=== PATIENT | female | born 1980 | race Asian ===

== ENCOUNTER 2018-06-16 06:15 | Inpatient (IN) | payer BC ==
[~2018-06-16 06:15] MED LIST: Buffered Lidocaine 1% SYRIN* 1 ML/SYRINGE INTRADERM ONE; Lactated Ringers 1000 ML Bag* 1,000 ML IV SCH; Sodium Citrate/Citric Acid* 15 ML UDC PO ONE
[2018-06-16] MEDS ORDERED: Morphine PF AMP (0.5MG/ML)* 5 MG/10 ML AMP ONE (07:36)
[2018-06-16] MEDS ORDERED: Carboprost Tromethamine* 250 MCG INJ ONE (07:36)
[2018-06-16] MEDS ORDERED: ceFOXitin 2 GM IVPREMIX* 2 GM/50 ML BAG ONE (07:37)
[2018-06-16] MEDS ORDERED: DiMENhydriNATE IV* 50 MG/ML VIAL IV PUSH PRN (07:45)
[2018-06-16] MEDS ORDERED: Naloxone* 0.4 MG/ML 1 ML VIAL IV PRN ×2 (07:45→08:50)
[2018-06-16] MEDS ORDERED: fentaNYL* 50 MCG/ML 2 ML VIAL (100 MCG VIAL) IV PRN (07:45)
[2018-06-16] MEDS ORDERED: Phenylephrine IV* 40 MCG/ML 10 ML SYRINGE ONE (08:27)
[2018-06-16] MEDS ORDERED: OXYTOCIN* 10 UNITS/ML 1 ML VIAL ONE ×2 (08:29→08:37)
[2018-06-16] MEDS ORDERED: Ondansetron INJ* 2 MG/ML VIAL ONE (08:29)
[2018-06-16] MEDS ORDERED: Ondansetron INJ* 2 MG/ML VIAL IV PRN (08:50)
[2018-06-16] MEDS ORDERED: Naloxone* 2 MG in NS 0.9% 250 ML* 250 ML IV PRN (08:50)
[2018-06-16] MEDS ORDERED: oxyCODONE/Acetamin 5/325 MG* TAB PO PRN (08:50)
[2018-06-16] MEDS ORDERED: Nalbuphine* 10 MG/ML 1 ML VIAL IV PRN (08:50)
[2018-06-16] MEDS ORDERED: Witch Hazel PAD* JAR TOPICAL PRN (09:30)
[2018-06-16] MEDS ORDERED: Dibucaine 1% 28.35 GM TUBE PR PRN (09:30)
[2018-06-16] MEDS ORDERED: Glycerin ADULT SUPP PR PRN (09:30)
[2018-06-16] MEDS ORDERED: Oxytocin in LR* 20 UNITS/1,000 ML BAG IVPB SCH (10:00)
[2018-06-16] MEDS ORDERED: Lactated Ringers 1000 ML Bag* 1,000 ML IV SCH (10:00)
[2018-06-16] MEDS: Acetaminophen TAB* 325 MG PO PRN ×3 (11:53→20:10)
[2018-06-16] MEDS: Simethicone TAB* 80 MG TAB.CHEW PO SCH ×3 (12:29→21:36)
[2018-06-16] MEDS: Docusate CAP* 100 MG PO SCH ×2 (12:43→21:36)
--- NOTE | 2018-06-16 23:46 | OP ---
DATE OF OPERATION: 06/16/18 - ROOM #117 DATE OF : 80 SURGEON: Marlen Santo MD MACHINIST APPRENTICE: Curtis Buchanan MD ANESTHESIOLOGIST: Dr. Andujar. ANESTHESIA: Spinal. PRE-OP DIAGNOSES: Intrauterine plus complete placenta previa, 37 weeks, fibroid uterus. POST-OP DIAGNOSES: Intrauterine plus complete placenta previa, 37 weeks, fibroid uterus, delivered. OPERATIVE PROCEDURE: Primary low transverse section with vacuum extraction. ESTIMATED BLOOD LOSS: 1000 cc. URINE OUTPUT: 250 cc of clear yellow urine. FLUIDS: 2700 cc of crystalloid. FINDINGS: Revealed a vertex male infant with Apgars 8 at 1 minute and 9 at 5 minutes, weight was 8 pounds 3 ounces. Complete placenta previa manually extracted, intact 3-vessel cord, went to pathology. Infant was without meconium and no nuchal cord. Large posterior wall fibroid approximately 7 cm size. Extensive endometriosis involving the posterior cul-de-sac and adhesions of the left tube and left ovary itself without masses. Right tube and ovary with a normal appearance. COMPLICATIONS: None apparent. DISPOSITION: Stable to recovery room. DESCRIPTION OF PROCEDURE: The patient was placed in dorsal lithotomy position. The abdomen was then prepped and draped. After checking for appropriate anesthesia, the patient was identified with the universal protocol for correct procedure, position, and the patient. An incision was made with two fingerbreadths above the pubic symphysis with the scalpel. This was then carried down through to the fascia. Fascia was scored in the midline, extended laterally and superiorly using Vargas scissors and then superiorly and inferiorly with blunt and sharp dissection. The peritoneum was then entered bluntly. Peritoneal incision was extended superiorly and inferiorly bluntly. Bladder blade was inserted. Lower uterine segment was identified. Allis was used to tent up on the lower uterine segment and incision was made down through to the placental bed. The incision was extended bluntly. The was found to be vertex. Difficulty with delivery of the head occurred secondary to the previa and the fibroid. The vacuum was applied 3 times with immediate failure of the vacuum. A second new vacuum was placed. The rectus muscle was extended and excised with bandage scissors and with the second vacuum the head was delivered successfully. Cord was milked, doubly cut and then clamped and then infant was handed off to waiting soaking tank worker. Appropriate cord blood was then obtained. Placenta was then manually extracted, noted to be a complete previa. The cavity was wiped clean, noted to be free of any membranes. The large 7 cm fibroid was appreciated in the posterior wall, pushing forward the uterine cavity. In addition, the cervix was noted to be open manually for drainage of lochia . The incision itself in the lower uterine segment was reapproximated in 2 layers; the first layer running locked 0 Vicryl , second layer running imbricated 0 Vicryl. Just prior to closure of the hysterotomy site, the lower uterine segment was infused and injected with 250 mcg of Hemabate which was given IM into the intrauterine muscle. Once the hysterotomy site was imbricated with 0 Vicryl, attention was focused on the anatomy. There were extensive adhesions involving the posterior cul-de-sac with bowel involvement up in the lower third of the uterus. Adhesions involving the left tube and ovary, right tube and ovary had a normal appearance. The uterus was returned intraabdominally. Colic gutters were lavaged. Hemostasis was assured at the hysterotomy site. The peritoneum was then clamped with Nena and reapproximated using 3-0 Vicryl in a running fashion. Subfascial area was visualized, hemostasis assured and the fascia itself was reapproximated using 0 Vicryl x2 in a running fashion. Subcu was lavaged, hemostasis assured with Bovie coagulation and the skin was reapproximated using a 4-0 Monocryl in the subcuticular fashion. Mastisol and Steri's were applied. All sponge, instrument, and blade counts were correct throughout the case. The patient tolerated the procedure well and went to recovery room in stable condition. [id number]/[facility] #: [id number] HOOD
[2018-06-17] MEDS: Acetaminophen TAB* 325 MG PO PRN ×3 (00:07→23:54)
[2018-06-17] MEDS: oxyCODONE/Acetamin 5/325 MG* TAB PO PRN ×4 (04:14→19:45)
[2018-06-17 08:27] LABS: ABS Basophils 0 10^3/ul (0-0.2); ABS Eosinophils 0 10^3/ul (0-0.6); ABS Lymphocytes 1.6 10^3/ul (1.0-4.8); ABS Monocytes 0.7 10^3/ul (0-0.8); ABS Neutrophils 11.8 10^3/ul (1.5-7.7); ABS Nucleated RBC 0 10^3/ul; Eosinophil % 0.3 %; Hematocrit 29 % (35-47); Hemoglobin 9.6 g/dl (12.0-16.0); Lymphocyte % 11.5 %; Mean Corpuscular HGB Conc 33 g/dl (31-36); Mean Corpuscular Hemoglobin 29 pg (27-31); Mean Corpuscular Volume 88 fL (80-97); Mean Platelet Volume 9.5 fL (7.4-10.4); Nucleated Red Blood Cells % 0; Platelet Count 119 10^3/ul (150-450); Red Blood Count 3.28 10^6/ul (4.00-5.40); Red Cell Distribution Width 14 % (10.5-15); White Blood Count 14.2 10^3/ul (3.5-10.8)
[2018-06-17] MEDS: Docusate CAP* 100 MG PO SCH ×3 (09:11→19:45)
[2018-06-17] MEDS: Simethicone TAB* 80 MG TAB.CHEW PO SCH ×4 (09:11→19:45)
[2018-06-17] MEDS: Ferrous Gluconate TAB* 324 MG TAB PO SCH ×2 (09:12→19:45)
[2018-06-18] MEDS: Acetaminophen TAB* 325 MG PO PRN (03:53)
[2018-06-18] MEDS: oxyCODONE/Acetamin 5/325 MG* TAB PO PRN ×5 (08:51→22:09)
[2018-06-18] MEDS: Simethicone TAB* 80 MG TAB.CHEW PO SCH ×4 (08:52→20:22)
[2018-06-18] MEDS: Docusate CAP* 100 MG PO SCH ×3 (08:53→20:22)
[2018-06-18] MEDS: Ferrous Gluconate TAB* 324 MG TAB PO SCH ×2 (08:53→20:22)
[2018-06-19] MEDS: oxyCODONE/Acetamin 5/325 MG* TAB PO PRN ×3 (01:52→12:56)
[2018-06-19] MEDS: Ferrous Gluconate TAB* 324 MG TAB PO SCH (08:58)
[2018-06-19] MEDS: Docusate CAP* 100 MG PO SCH ×2 (08:58→12:56)
[2018-06-19] MEDS: Simethicone TAB* 80 MG TAB.CHEW PO SCH ×2 (08:58→12:56)
[2018-06-19 11:45] VITALS: BP 111/68
== END 2018-06-19 17:04 | disposition home or self-care (01) | DRG 540 ==
LOC: MCHOB 06:15
PROVIDERS: ADMIT Obstetrics & Gynecology; ATTEND Obstetrics & Gynecology
PROC: 10907ZC Drainage of Amniotic Fluid, Therapeutic from Products of Conception, Via Natural or Artificial Opening (ICD-10-PCS; 2018-06-16)
PROC: 4A1HXCZ Monitoring of Products of Conception, Cardiac Rate, External Approach (ICD-10-PCS; 2018-06-16)
PROC: 10D00Z1 Extraction of Products of Conception, Low, Open Approach (ICD-10-PCS; principal; 2018-06-16 07:45)
DX: O44.03 Complete placenta previa NOS or without hemorrhage, third trimester (principal); O34.13 Maternal care for benign tumor of corpus uteri, third trimester; O34.83 Maternal care for other abnormalities of pelvic organs, third trimester; Z3A.38 38 weeks gestation of pregnancy; N83.202 Unspecified ovarian cyst, left side; Z37.0 Single live birth; Z88.6 Allergy status to analgesic agent; Z88.0 Allergy status to penicillin
CPT/HCPCS: 36415; 76815; 85025; 88307; A9270-GY; J0694; J2405; J2590

== ENCOUNTER 2019-03-05 01:35 | Inpatient (IN) | payer OTHER ==
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
[2019-03-05 02:32] LABS: ABS Eosinophils 0.1 10^3/ul (0-0.6); ABS Lymphocytes 1.7 10^3/ul (1.0-4.8); ABS Monocytes 0.7 10^3/ul (0-0.8); ABS Neutrophils 7.4 10^3/ul (1.5-7.7); Eosinophil % 0.5 %; Hematocrit 36 % (35-47); Hemoglobin 12.2 g/dL (12.0-16.0); Lymphocyte % 17.5 %; Mean Corpuscular HGB Conc 34 g/dL (31-36); Mean Corpuscular Hemoglobin 29 pg (27-31); Mean Corpuscular Volume 86 fL (80-97); Mean Platelet Volume 8.1 fL (7.4-10.4); Platelet Count 257 10^3/uL (150-450); Red Blood Count 4.19 10^6 /uL (3.70-4.87); Red Cell Distribution Width 12 % (10-15); White Blood Count 9.9 10^3/uL (3.5-10.8)
[2019-03-05 03:08] LABS: ALT 13 U/L (7-52); AST 18 U/L (13-39); Albumin/Globulin Ratio 1.5 (1-3); Alkaline Phosphatase 83 U/L (34-104); Anion Gap 9 mmol/L (2-11); BUN/Creatinine Ratio 18.1 (8-20); Blood Urea Nitrogen 15 mg/dL (6-24); CO2 Carbon Dioxide 22 mmol/L (22-32); Calcium 8.9 mg/dL (8.6-10.3); Chloride 108 mmol/L (101-111); EGFR African American 92.6 (>60); EGFR Non-African American 76.5 (>60); Globulin 2.6 g/dL (2-4); Glucose 100 mg/dL (70-100); Potassium 3.3 mmol/L (3.5-5.0); Sodium 139 mmol/L (135-145); Total Protein 6.6 g/dL (6.4-8.9)
[2019-03-05 03:30] LABS: Acetaminophen < 15 mcg/mL; Alcohol < 10 mg/dL (<10); Salicylate < 2.50 mg/dL (<30)
[2019-03-05 03:44] LABS: TSH (Thyroid Stimulating Horm) 1.65 mcIU/mL (0.34-5.60)
[2019-03-05] MEDS ORDERED: LORazepam INJ* 2 MG/ML 1 ML VIAL ONE (05:45)
[2019-03-05] MEDS ORDERED: Haloperidol INJ IV/IM* 5 MG/ML AMP ONE (05:49)
[2019-03-05] MEDS ORDERED: diPHENhydraMINE IV* 50 MG/ML 1 ml VIAL (BENADRYL) ONE (05:49)
[2019-03-05] MEDS ORDERED: Al Hydrox/Mg Hydrox/Simet LIQ* 30 ML UDC PO PRN (06:47)
[2019-03-05] MEDS ORDERED: Acetaminophen TAB* 325 MG PO PRN (06:47)
[2019-03-05] MEDS: Vitamin THERAPEUTIC TAB PO SCH (10:09)
[2019-03-05 13:23] VITALS: BP 97/58
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
[2019-03-05] MEDS: Sertraline* 25 MG TAB PO SCH ×2 (22:16→22:41)
[2019-03-06 10:54] LABS: HDL Cholesterol 56.7 mg/dL
[2019-03-06] MEDS: Sertraline* 25 MG TAB PO SCH (12:05)
[2019-03-06] MEDS: Vitamin THERAPEUTIC TAB PO SCH (12:50)
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
== END 2019-03-06 18:13 | disposition home or self-care (01) | DRG 885 ==
LOC: ED 01:35 → BSU 05:39
PROVIDERS: ADMIT Psychiatry & Neurology Psychiatry; ATTEND Psychiatry & Neurology Psychiatry
DX: F32.2 Major depressive disorder, single episode, severe without psychotic features (principal); F41.9 Anxiety disorder, unspecified; Z88.6 Allergy status to analgesic agent; Z88.0 Allergy status to penicillin; Z28.21 Immunization not carried out because of patient refusal
CPT/HCPCS: 36415; 80053; 80061; 80320; 80329; 83036; 84443; 85025; 99222; 99238; 99285; G0480; J1200; J1630; J2060

== ENCOUNTER 2022-03-28 05:42 | Inpatient (IN) ==
[2022-03-28] MEDS ORDERED: Lactated Ringers 1000 ml BAG 1,000 ML IV SCH ×2 (06:00→11:00)
[2022-03-28] MEDS ORDERED: Buffered Lidocaine 1% SYRIN 1 ml INTRADERM ONE (06:00)
[2022-03-28 06:43] LABS: Hematocrit 39 % (35-47); Hemoglobin 13.6 g/dL (12.0-16.0); Mean Corpuscular HGB Conc 35 g/dL (31-36); Mean Corpuscular Hemoglobin 30 pg (27-31); Mean Corpuscular Volume 87 fL (80-97); Mean Platelet Volume 9.3 fL (7.4-10.4); Platelet Count 163 10^3/uL (150-450); Red Blood Count 4.52 10^6 /uL (3.70-4.87); Red Cell Distribution Width 14 % (10-15)
[2022-03-28] MEDS ORDERED: ceFOXitin 2 GM PREMIX 50 ML IVPB ONE (07:00)
[2022-03-28] MEDS ORDERED: Phenylephrine 40 mcg/mL 10mL (400mcg) SYRINGE ONE (07:04)
[2022-03-28] MEDS ORDERED: Oxytocin 10 UNITS/ML 1 ML VIAL ONE (07:04)
[2022-03-28] MEDS ORDERED: fentaNYL 100 mcg/2 ml 50 MCG/ML VIAL ONE (07:05)
[2022-03-28] MEDS ORDERED: Morphine PF AMP (0.5MG/ML) 5 MG/10 ML AMP ONE (07:05)
[2022-03-28] MEDS: Sodium Citrate/Citric Acid LIQ 15 ML UDC PO ONE ×2 (08:17→15:26)
[2022-03-28] MEDS ORDERED: Naloxone 0.4 mg VIAL 0.4 mg/ml 1 ml VIAL IV PRN (09:05)
[2022-03-28] MEDS ORDERED: fentaNYL 100 mcg/2 ml 50 MCG/ML VIAL IV PRN (09:05)
[2022-03-28] MEDS: Acetaminophen IV 1 GM/100ML 1,000 MG/100 ML BAG IV PRN ×2 (09:13→17:33)
[2022-03-28] MEDS ORDERED: Ondansetron 4 mg VIAL 2 MG/ML 2 ml VIAL ONE (09:14)
[2022-03-28] MEDS ORDERED: Metoclopramide 5 MG/ML VIAL (10 mg) IV PRN (09:18)
[2022-03-28] MEDS ORDERED: Naloxone 0.4 mg VIAL 0.4 mg/ml 1 ml VIAL IV PUSH PRN (09:18)
[2022-03-28] MEDS ORDERED: Ondansetron 4 mg VIAL 2 MG/ML 2 ml VIAL IV PRN (09:18)
[2022-03-28] MEDS ORDERED: Oxytocin in LR 20,000 MILLI.UNIT/1,000 ML BAG IV ONE (10:18)
[2022-03-28] MEDS ORDERED: Witch Hazel PAD JAR TOPICAL PRN (10:43)
[2022-03-28] MEDS ORDERED: Glycerin ADULT 2.4 gm SUPP PR PRN (10:43)
[2022-03-28] MEDS ORDERED: Oxytocin in LR 20,000 MILLI.UNIT/1,000 ML BAG IV SCH (10:45)
[2022-03-28 15:58] LABS: Urine Benzodiazepine Screen None Detected (None Detect); Urine Opiates Screen None Detected (None Detect)
[2022-03-28 16:25] LABS: Urine Appearance Clear; Urine Bilirubin Negative (Negative); Urine Color Yellow; Urine Glucose Negative (Negative); Urine Ketones Negative (Negative)
[2022-03-28 16:26] LABS: Urine Blood Negative (Negative); Urine Nitrite Negative (Negative); Urine Protein Negative (Negative); Urine Urobilinogen 0.2 (Negative) (Negative); Urine pH 6.5 (5.0-9.0)
[2022-03-28 16:36] LABS: Urine Bacteria 2+ (Absent); Urine Red Blood Cell Absent (Absent); Urine Squamous Epithelial Cell Present (Absent); Urine White Blood Cell Trace(0-5/hpf) (Absent)
[2022-03-29 06:20] LABS: ABS Lymphocytes 1.6 10^3/ul (1.0-4.8); ABS Monocytes 0.6 10^3/ul (0-0.8); ABS Neutrophils 9.6 10^3/ul (1.5-7.7); Eosinophil % 0.3 %; Hematocrit 36 % (35-47); Hemoglobin 12.1 g/dL (12.0-16.0); Lymphocyte % 13.8 %; Mean Corpuscular HGB Conc 33 g/dL (31-36); Mean Corpuscular Hemoglobin 29 pg (27-31); Mean Corpuscular Volume 88 fL (80-97); Mean Platelet Volume 8.7 fL (7.4-10.4); Platelet Count 132 10^3/uL (150-450); Red Blood Count 4.12 10^6 /uL (3.70-4.87); Red Cell Distribution Width 14 % (10-15); White Blood Count 11.8 10^3/uL (3.5-10.8)
[2022-03-30 08:03] VITALS: BP 113/60
== END 2022-03-30 16:12 | disposition home or self-care (01) | DRG 788 ==
LOC: MCHOB 05:42
PROVIDERS: ADMIT Obstetrics & Gynecology; ATTEND Obstetrics & Gynecology